=== PATIENT | male | born 1940 | race Caucasian/White ===

== ENCOUNTER 2016-11-10 19:50 | Inpatient (IN) | payer MEDICARE, BC ==
[~2016-11-10] VITALS: Ht 175.3 cm; Wt 82.3 kg
[2016-11-10] MEDS ORDERED: SODIUM CHLORIDE FLUSH 10ML SYR IVF ONE (21:00)
[2016-11-10] MEDS ORDERED: LIDOCAINE 2% 100MG/5ML SYRINGE IVPush ONE (21:00)
[2016-11-10] MEDS ORDERED: PLEASE ENTER ALLERGIES MC SCH ×2 (21:00)
[2016-11-10] MEDS ORDERED: TIOT18CA INH (21:09)
[2016-11-10] MEDS ORDERED: FLUT1DIS3 INH (21:09)
[2016-11-10] MEDS ORDERED: TAMS0.4C2 PO (21:09)
[2016-11-10] MEDS ORDERED: IRON1TAB60 PO (21:09)
[2016-11-10] MEDS ORDERED: FINA5TAB4 PO (21:09)
[2016-11-10] MEDS ORDERED: PANT40TA3 PO (21:16)
[2016-11-10] MEDS ORDERED: ALBU8.5H3 INH (21:16)
[2016-11-10] MEDS ORDERED: METO50TA82 PO (21:16)
[2016-11-10] MEDS ORDERED: ASPI81TA50 PO (21:16)
[2016-11-10] MEDS ORDERED: ATOR40TA PO (21:16)
[2016-11-10] MEDS ORDERED: MAGN400T36 PO (21:16)
[2016-11-10] MEDS ORDERED: AMIO400T4 PO (21:16)
[2016-11-10] MEDS ORDERED: FURO40TA6 PO (21:16)
[2016-11-10] MEDS ORDERED: TRAZODONE 50MG TABLET PO PRN (21:30)
[2016-11-10] MEDS ORDERED: ACETAMINOPHEN 325 MG TABLET PO PRN (21:30)
[2016-11-10] MEDS ORDERED: BISACODYL 10 MG SUPP PR PRN (21:30)
[2016-11-10] MEDS ORDERED: POLYETHYLENE GLYCOL 17 GM PACKET PO PRN (21:30)
[2016-11-10] MEDS ORDERED: LABETALOL 5MG/ML, 20ML IV PRN (21:30)
[2016-11-10] MEDS ORDERED: PANTOPROZOLE 40MG TABLET PO ONE (21:30)
[2016-11-10] MEDS ORDERED: ONDANSETRON ODT 4 MG PO PRN (21:30)
[2016-11-10] MEDS ORDERED: HEPARIN 5,000 UNITS/ML, 1ML ONE (22:08)
[2016-11-10] MEDS: HEPARIN 5,000 UNITS/ML, 1ML SQ SCH (22:15)
[2016-11-10 23:12] LABS: IS PT STATUS REG ER OR PRE ER? YES
[2016-11-11] MEDS ORDERED: ALBUTEROL SULFATE 2.5 MG/3 ML NPPB ONE (00:30)
[2016-11-11] MEDS ORDERED: FUROSEMIDE 40 MG/4 ML IV ONE ×2 (01:00→23:30)
[2016-11-11 01:10] LABS: ABG COLLECTION SITE LEFT BRACHIAL
[2016-11-11 01:23] LABS: BLOOD UREA NITROGEN 19 mg/dL (7-18)
[2016-11-11] MEDS: METOPROLOL TARTRATE 50 MG TABLET PO SCH ×3 (02:03→20:29)
[2016-11-11] MEDS: PHENYLEPHRINE 20 MG in SODIUM CHLORIDE 0.9% 248 ML IV PRN ×3 (02:03→14:58)
[2016-11-11] MEDS: ATORVASTATIN 40 MG TABLET PO SCH ×2 (02:58→20:31)
[2016-11-11] MEDS ORDERED: POTASSIUM CHLORIDE 20 MEQ TAB.ER.PRT PO ONE (03:00)
[2016-11-11] MEDS: IPRATROPIUM 0.5 MG/2.5 ML INHA NPPB SCH ×2 (03:00→03:42)
[2016-11-11 03:32] VITALS: BP 85/47
[2016-11-11 04:00] VITALS: BP 97/50
[2016-11-11 05:43] LABS: ABG COLLECTION SITE LEFT RADIAL; COLLATERAL CIRCULATION TESTING NORMAL
[2016-11-11 06:10] LABS: ASPARTATE AMINO TRANSFERASE 31 U/L (15-37); BLOOD UREA NITROGEN 19 mg/dL (7-18)
[2016-11-11 06:16] LABS: IS PT STATUS REG ER OR PRE ER? NO
[2016-11-11] MEDS: HEPARIN 5,000 UNITS/ML, 1ML SQ SCH ×3 (06:23→20:49)
[2016-11-11] MEDS: FINASTERIDE 5 MG TABLET PO SCH (09:00)
[2016-11-11] MEDS ORDERED: TAMSULOSIN 0.4 MG CAP.ER.24H PO SCH (09:00)
[2016-11-11] MEDS: FUROSEMIDE 40 MG TABLET PO SCH (09:44)
[2016-11-11] MEDS: AMIODARONE 200 MG TABLET PO SCH (09:44)
[2016-11-11] MEDS: ASPIRIN 81 MG TABLET EC PO SCH (09:44)
[2016-11-11] MEDS: MULTIVITAMINS WITH IRON TABLET PO SCH (09:44)
[2016-11-11] MEDS: POTASSIUM CHLORIDE 20 MEQ TAB.ER.PRT PO SCH ×2 (09:44→17:10)
[2016-11-11] MEDS: MAGNESIUM OXIDE 400 MG TABLET PO SCH (09:45)
[2016-11-11] MEDS ORDERED: ALBUTEROL/IPRATROPIUM 2.5MG/0.5MG, 3 ML ONE (10:17)
[2016-11-11] MEDS ORDERED: ALBUTEROL/IPRATROPIUM 2.5MG/0.5MG, 3 ML NPPB PRN (10:30)
[2016-11-11] MEDS: FLUTICASONE/VILANTEROL 100-25MCG/INH INH SCH (12:52)
[2016-11-11] MEDS: ALBUTEROL/IPRATROPIUM 2.5MG/0.5MG, 3 ML NPPB SCH ×2 (14:12→21:00)
[2016-11-11] MEDS: PHENYLEPHRINE 40 MG in SODIUM CHLORIDE 0.9% 246 ML IV PRN (19:41)
[2016-11-11] MEDS: TAMSULOSIN 0.4 MG CAP.ER.24H PO SCH (20:31)
[2016-11-12] MEDS: PHENYLEPHRINE 40 MG in SODIUM CHLORIDE 0.9% 246 ML IV PRN ×2 (02:16→08:40)
[2016-11-12] MEDS: ALBUTEROL/IPRATROPIUM 2.5MG/0.5MG, 3 ML NPPB SCH ×4 (03:00→20:09)
[2016-11-12 04:00] VITALS: BP 99/52
[2016-11-12] MEDS: HEPARIN 5,000 UNITS/ML, 1ML SQ SCH ×3 (04:58→20:57)
[2016-11-12 06:07] LABS: ASPARTATE AMINO TRANSFERASE 37 U/L (15-37); BLOOD UREA NITROGEN 17 mg/dL (7-18)
[2016-11-12 07:39] LABS: IS PT STATUS REG ER OR PRE ER? NO
[2016-11-12] MEDS: FLUTICASONE/VILANTEROL 100-25MCG/INH INH SCH (08:39)
[2016-11-12] MEDS: MAGNESIUM OXIDE 400 MG TABLET PO SCH (08:40)
[2016-11-12] MEDS: FUROSEMIDE 40 MG TABLET PO SCH (08:41)
[2016-11-12] MEDS: MULTIVITAMINS WITH IRON TABLET PO SCH (08:41)
[2016-11-12] MEDS: ASPIRIN 81 MG TABLET EC PO SCH (08:41)
[2016-11-12] MEDS: AMIODARONE 200 MG TABLET PO SCH (08:41)
[2016-11-12] MEDS: FINASTERIDE 5 MG TABLET PO SCH (08:42)
[2016-11-12] MEDS: POTASSIUM CHLORIDE 20 MEQ TAB.ER.PRT PO SCH ×2 (08:42→18:29)
[2016-11-12] MEDS ORDERED: LABETALOL 5MG/ML, 20ML IV PRN (20:11)
[2016-11-12] MEDS: ATORVASTATIN 40 MG TABLET PO SCH (20:55)
[2016-11-12] MEDS: TAMSULOSIN 0.4 MG CAP.ER.24H PO SCH (20:55)
[2016-11-13 04:00] VITALS: BP 97/48
[2016-11-13] MEDS: HEPARIN 5,000 UNITS/ML, 1ML SQ SCH ×3 (05:30→21:47)
[2016-11-13] MEDS: PHENYLEPHRINE 40 MG in SODIUM CHLORIDE 0.9% 246 ML IV PRN ×2 (05:40→18:53)
[2016-11-13 06:11] LABS: BLOOD UREA NITROGEN 17 mg/dL (7-18)
[2016-11-13] MEDS: ALBUTEROL/IPRATROPIUM 2.5MG/0.5MG, 3 ML NPPB SCH ×4 (07:30→21:10)
[2016-11-13] MEDS ORDERED: SODIUM CHLORIDE 0.9% 1,000 ML IV ONE (07:36)
[2016-11-13] MEDS ORDERED: FILTER 0.22 MICRON IV PRN (08:00)
[2016-11-13] MEDS ORDERED: AMIODARONE 150 MG in DEXTROSE 5% 100 ML IV ONE (08:00)
[2016-11-13] MEDS: FINASTERIDE 5 MG TABLET PO SCH (09:00)
[2016-11-13] MEDS: MULTIVITAMINS WITH IRON TABLET PO SCH (09:00)
[2016-11-13] MEDS: FLUTICASONE/VILANTEROL 100-25MCG/INH INH SCH (09:21)
[2016-11-13] MEDS: TAMSULOSIN 0.4 MG CAP.ER.24H PO SCH (09:23)
[2016-11-13] MEDS: MAGNESIUM OXIDE 400 MG TABLET PO SCH (09:23)
[2016-11-13] MEDS: POTASSIUM CHLORIDE 20 MEQ TAB.ER.PRT PO SCH ×2 (09:23→16:13)
[2016-11-13] MEDS: AMIODARONE 200 MG TABLET PO SCH (09:25)
[2016-11-13] MEDS: FUROSEMIDE 40 MG TABLET PO SCH (09:26)
[2016-11-13] MEDS: ASPIRIN 81 MG TABLET EC PO SCH (09:48)
[2016-11-13] MEDS ORDERED: FENTANYL PF 100 MCG/2ML ONE (11:42)
[2016-11-13] MEDS ORDERED: LIDOCAINE 2%, 20ML ONE (11:42)
[2016-11-13] MEDS ORDERED: MIDAZOLAM 1 MG/ML, 5ML ONE (11:42)
[2016-11-13] MEDS ORDERED: BIVALIRUDIN 250 MG ONE (11:46)
[2016-11-13] MEDS ORDERED: VERAPAMIL 2.5 MG/ML, 2ML ONE (11:46)
[2016-11-13] MEDS ORDERED: AMIODARONE 50 MG/ML, 3ML ONE (12:05)
[2016-11-13] MEDS: MEXILETINE 150 MG CAPSULE PO SCH ×2 (16:13→21:48)
[2016-11-13] MEDS: DOCUSATE 100 MG CAPSULE PO PRN (16:15)
[2016-11-13] MEDS: ATORVASTATIN 40 MG TABLET PO SCH (21:47)
[2016-11-14] MEDS ORDERED: NOREPINEPHRINE 4 MG in SODIUM CHLORIDE 0.9% 246 ML IV PRN (04:30)
[2016-11-14 04:42] VITALS: BP 88/45
[2016-11-14] MEDS: PHENYLEPHRINE 40 MG in SODIUM CHLORIDE 0.9% 246 ML IV PRN (05:31)
[2016-11-14] MEDS: HEPARIN 5,000 UNITS/ML, 1ML SQ SCH ×3 (05:32→21:05)
[2016-11-14] MEDS: MEXILETINE 150 MG CAPSULE PO SCH ×3 (05:32→21:05)
[2016-11-14] MEDS: ALBUTEROL/IPRATROPIUM 2.5MG/0.5MG, 3 ML NPPB SCH ×4 (07:45→20:53)
[2016-11-14] MEDS: AMIODARONE 200 MG TABLET PO SCH (09:20)
[2016-11-14] MEDS: FINASTERIDE 5 MG TABLET PO SCH (09:20)
[2016-11-14] MEDS: MULTIVITAMINS WITH IRON TABLET PO SCH (09:20)
[2016-11-14] MEDS: POTASSIUM CHLORIDE 20 MEQ TAB.ER.PRT PO SCH ×2 (09:20→17:57)
[2016-11-14] MEDS: TAMSULOSIN 0.4 MG CAP.ER.24H PO SCH (09:20)
[2016-11-14] MEDS: FLUTICASONE/VILANTEROL 100-25MCG/INH INH SCH (09:20)
[2016-11-14] MEDS: ASPIRIN 81 MG TABLET EC PO SCH (09:21)
[2016-11-14] MEDS: FUROSEMIDE 40 MG TABLET PO SCH (09:21)
[2016-11-14] MEDS: MAGNESIUM OXIDE 400 MG TABLET PO SCH (09:27)
[2016-11-14] MEDS ORDERED: PROPOFOL 10 MG/ML, 20ML ONE (12:33)
[2016-11-14] MEDS ORDERED: PHENYLEPHRINE 10 MG/ML ONE (12:33)
[2016-11-14] MEDS: ATORVASTATIN 40 MG TABLET PO SCH (21:05)
[2016-11-15 04:58] VITALS: BP 95/42
[2016-11-15] MEDS: MEXILETINE 150 MG CAPSULE PO SCH ×3 (06:02→20:37)
[2016-11-15] MEDS: HEPARIN 5,000 UNITS/ML, 1ML SQ SCH ×3 (06:02→20:37)
[2016-11-15] MEDS: ALBUTEROL/IPRATROPIUM 2.5MG/0.5MG, 3 ML NPPB SCH ×4 (07:20→20:17)
[2016-11-15] MEDS: MAGNESIUM OXIDE 400 MG TABLET PO SCH (08:18)
[2016-11-15] MEDS: MULTIVITAMINS WITH IRON TABLET PO SCH (08:18)
[2016-11-15] MEDS: POTASSIUM CHLORIDE 20 MEQ TAB.ER.PRT PO SCH (08:19)
[2016-11-15] MEDS: FLUTICASONE/VILANTEROL 100-25MCG/INH INH SCH (08:19)
[2016-11-15] MEDS: TAMSULOSIN 0.4 MG CAP.ER.24H PO SCH (08:19)
[2016-11-15] MEDS: ASPIRIN 81 MG TABLET EC PO SCH (08:19)
[2016-11-15] MEDS: AMIODARONE 200 MG TABLET PO SCH (08:19)
[2016-11-15] MEDS: FUROSEMIDE 40 MG TABLET PO SCH (08:19)
[2016-11-15 12:49] LABS: BLOOD UREA NITROGEN 19 mg/dL (7-18)
[2016-11-15] MEDS ORDERED: SODIUM CHLORIDE 0.9% 1,000 ML IV ONE (15:00)
[2016-11-15 15:12] VITALS: BP 104/60
[2016-11-15] MEDS: DOCUSATE 100 MG CAPSULE PO PRN (16:46)
[2016-11-15 18:52] VITALS: BP 99/61
[2016-11-15] MEDS: ATORVASTATIN 40 MG TABLET PO SCH (20:37)
[2016-11-16 02:00] VITALS: BP 96/55
[2016-11-16 03:57] LABS: BLOOD UREA NITROGEN 17 mg/dL (7-18)
[2016-11-16] MEDS: HEPARIN 5,000 UNITS/ML, 1ML SQ SCH ×3 (05:05→21:51)
[2016-11-16] MEDS: MEXILETINE 150 MG CAPSULE PO SCH ×3 (05:44→21:51)
[2016-11-16] MEDS: ALBUTEROL/IPRATROPIUM 2.5MG/0.5MG, 3 ML NPPB SCH ×4 (07:00→19:45)
[2016-11-16 07:15] VITALS: BP 103/63
[2016-11-16] MEDS ORDERED: PHENYLEPHRINE 10 MG/ML ONE (07:56)
[2016-11-16] MEDS ORDERED: PROPOFOL 10 MG/ML, 20ML ONE (07:56)
[2016-11-16] MEDS ORDERED: EPINEPHRINE 1 MG/ML, 1ML ONE (07:56)
[2016-11-16 09:29] VITALS: BP 105/72
[2016-11-16] MEDS: FLUTICASONE/VILANTEROL 100-25MCG/INH INH SCH (09:32)
[2016-11-16] MEDS: FUROSEMIDE 40 MG TABLET PO SCH (09:32)
[2016-11-16] MEDS: MAGNESIUM OXIDE 400 MG TABLET PO SCH (09:32)
[2016-11-16] MEDS: MULTIVITAMINS WITH IRON TABLET PO SCH (09:33)
[2016-11-16] MEDS: TAMSULOSIN 0.4 MG CAP.ER.24H PO SCH (09:33)
[2016-11-16] MEDS: ASPIRIN 81 MG TABLET EC PO SCH (09:33)
[2016-11-16] MEDS: AMIODARONE 200 MG TABLET PO SCH (09:33)
[2016-11-16 19:46] VITALS: BP 103/63
[2016-11-16] MEDS: ATORVASTATIN 40 MG TABLET PO SCH (21:51)
[2016-11-17 01:51] VITALS: BP 101/57
[2016-11-17] MEDS: HEPARIN 5,000 UNITS/ML, 1ML SQ SCH ×3 (05:58→21:32)
[2016-11-17] MEDS: MEXILETINE 150 MG CAPSULE PO SCH ×3 (05:58→21:32)
[2016-11-17] MEDS: ALBUTEROL/IPRATROPIUM 2.5MG/0.5MG, 3 ML NPPB SCH ×4 (07:00→19:32)
[2016-11-17 07:42] VITALS: BP 110/62
[2016-11-17] MEDS: FLUTICASONE/VILANTEROL 100-25MCG/INH INH SCH (08:40)
[2016-11-17] MEDS: ASPIRIN 81 MG TABLET EC PO SCH (08:41)
[2016-11-17] MEDS: MAGNESIUM OXIDE 400 MG TABLET PO SCH (08:41)
[2016-11-17] MEDS: AMIODARONE 200 MG TABLET PO SCH (08:41)
[2016-11-17] MEDS: FUROSEMIDE 40 MG TABLET PO SCH (08:41)
[2016-11-17] MEDS: TAMSULOSIN 0.4 MG CAP.ER.24H PO SCH (08:41)
[2016-11-17] MEDS: MULTIVITAMINS WITH IRON TABLET PO SCH (08:41)
[2016-11-17 14:14] VITALS: BP 121/68
[2016-11-17 20:03] VITALS: BP 108/61
[2016-11-17] MEDS: ATORVASTATIN 40 MG TABLET PO SCH (21:32)
[2016-11-18 01:10] VITALS: BP 100/61
[2016-11-18] MEDS: HEPARIN 5,000 UNITS/ML, 1ML SQ SCH ×2 (06:28→10:15)
[2016-11-18] MEDS: MEXILETINE 150 MG CAPSULE PO SCH (06:28)
[2016-11-18] MEDS: ALBUTEROL/IPRATROPIUM 2.5MG/0.5MG, 3 ML NPPB SCH ×2 (07:05→11:25)
[2016-11-18] MEDS ORDERED: ASPI-621 PO (07:07)
[2016-11-18] MEDS ORDERED: MEXI150C PO (07:07)
[2016-11-18] MEDS ORDERED: TAMS-11 PO (07:07)
[2016-11-18] MEDS ORDERED: FURO40TA6 PO (07:07)
[2016-11-18] MEDS ORDERED: ATOR40TA78 PO (07:07)
[2016-11-18] MEDS ORDERED: MULT1TAB81 PO (07:07)
[2016-11-18] MEDS ORDERED: TRAZ50TA18 PO (07:07)
[2016-11-18] MEDS ORDERED: MAGN400T26 PO (07:07)
[2016-11-18] MEDS ORDERED: FLUT1AER INH (07:07)
[2016-11-18] MEDS ORDERED: AMIO200T42 PO (07:07)
[2016-11-18] MEDS: AMIODARONE 200 MG TABLET PO SCH (07:26)
[2016-11-18] MEDS: ASPIRIN 81 MG TABLET EC PO SCH (07:26)
[2016-11-18] MEDS: MULTIVITAMINS WITH IRON TABLET PO SCH (07:26)
[2016-11-18] MEDS: MAGNESIUM OXIDE 400 MG TABLET PO SCH (07:27)
[2016-11-18] MEDS: TAMSULOSIN 0.4 MG CAP.ER.24H PO SCH (07:27)
[2016-11-18] MEDS: FUROSEMIDE 40 MG TABLET PO SCH (07:27)
[2016-11-18] MEDS: FLUTICASONE/VILANTEROL 100-25MCG/INH INH SCH (07:27)
[2016-11-18 07:40] VITALS: BP 105/62
[2016-11-18 12:58] VITALS: BP 125/65
== END 2016-11-18 13:22 | DRG 286 ==
LOC: ED 22:13 → EDIP 22:56 → CSU 23:58 → 5SO 11-15 15:03
PROVIDERS: ADMIT Internal Medicine; ATTEND Internal Medicine
PROC: 02HV33Z Insertion of Infusion Device into Superior Vena Cava, Percutaneous Approach (ICD-10-PCS; 2016-11-11)
PROC: B548ZZA Ultrasonography of Superior Vena Cava, Guidance (ICD-10-PCS; 2016-11-11)
PROC: B2111ZZ Fluoroscopy of Multiple Coronary Arteries using Low Osmolar Contrast (ICD-10-PCS; 2016-11-13)
PROC: B2151ZZ Fluoroscopy of Left Heart using Low Osmolar Contrast (ICD-10-PCS; 2016-11-13)
PROC: B24BZZ4 Ultrasonography of Heart with Aorta, Transesophageal (ICD-10-PCS; 2016-11-13)
PROC: 4A023N7 Measurement of Cardiac Sampling and Pressure, Left Heart, Percutaneous Approach (ICD-10-PCS; principal; 2016-11-13 12:30)
PROC: 4B02XTZ Measurement of Cardiac Defibrillator, External Approach (ICD-10-PCS; 2016-11-16)
DX: I47.2 Ventricular tachycardia (principal); J96.21 Acute and chronic respiratory failure with hypoxia; I50.23 Acute on chronic systolic (congestive) heart failure; N17.9 Acute kidney failure, unspecified; D64.9 Anemia, unspecified; I25.10 Atherosclerotic heart disease of native coronary artery without angina pectoris; E78.00 Pure hypercholesterolemia, unspecified; E78.5 Hyperlipidemia, unspecified; E87.6 Hypokalemia; I95.9 Hypotension, unspecified; E87.70 Fluid overload, unspecified; I25.5 Ischemic cardiomyopathy; I34.0 Nonrheumatic mitral (valve) insufficiency; I45.10 Unspecified right bundle-branch block; J44.9 Chronic obstructive pulmonary disease, unspecified; N40.0 Benign prostatic hyperplasia without lower urinary tract symptoms; Z51.5 Encounter for palliative care; I25.2 Old myocardial infarction; Z79.82 Long term (current) use of aspirin; Z95.5 Presence of coronary angioplasty implant and graft; Z79.899 Other long term (current) drug therapy; Z87.891 Personal history of nicotine dependence; Z95.810 Presence of automatic (implantable) cardiac defibrillator; Z99.81 Dependence on supplemental oxygen; Z82.49 Family history of ischemic heart disease and other diseases of the circulatory system
CPT/HCPCS: 36415; 36569; 36600; 71010; 76937; 77001; 80048; 80053; 82803; 83735; 83880; 84439; 84443; 84484; 85025; 85610; 87081; 93005; 93312; 93321; 93325; 93458; 94640; 96372; 96374; C1760; C1894; C8929; J0171; J0583; J1644; J1940; J2250; J2704; J3010; J3490; J7613; J7620; J7644; C1751; J0282; J2370; J7030; J7050; Q9967

== ENCOUNTER 2020-04-23 07:53 | Inpatient (IN) | payer MEDICARE, BC ==
[~2020-04-23] VITALS: Ht 175.3 cm; Wt 90.0 kg
[~2020-04-23 07:53] MED LIST: ALBU8.5H8 INH; AMIO200T42 PO; AMIO400T5 PO; ASPI81TA45 PO; ASPI81TA50 PO; ATOR40TA PO; ATOR40TA78 PO; FINA5TAB4 PO; FLUT1AER INH; FLUT1DIS3 INH; FURO40TA6 PO; IRON1TAB60 PO; MAGN400T26 PO; MAGN400T36 PO; METO50TA82 PO; MEXI150C PO; MULT1TAB81 PO; PANT40TA3 PO; TAMS-11 PO; TAMS0.4C2 PO; TIOT18CA INH; TRAZ50TA66 PO
[2020-04-23] MEDS ORDERED: FENTANYL PF 100 MCG/2ML ONE ×2 (08:06→10:05)
[2020-04-23] MEDS ORDERED: LIDOCAINE-MPF 2% ,5ML ONE (08:07)
[2020-04-23] MEDS ORDERED: OXYcodone 5 MG/5 ML ORAL.SOL UDC PO PRN (08:30)
[2020-04-23] MEDS ORDERED: PLEASE ENTER HEIGHT AND WEIGHT MC SCH ×3 (08:30→11:30)
[2020-04-23] MEDS ORDERED: MEPERIDINE/PF 25MG/0.5ML IVPush PRN (08:30)
[2020-04-23] MEDS ORDERED: PROMETHAZINE 25 MG/ML, 1ML IVPush PRN (08:30)
[2020-04-23] MEDS ORDERED: ACETAMINOPHEN 325 MG TABLET PO PRN (08:30)
[2020-04-23] MEDS ORDERED: EPHEDRINE 50 MG/ML, 1ML IVPush PRN (08:30)
[2020-04-23] MEDS ORDERED: ONDANSETRON 2MG/ML, 2ML IVPush PRN (08:30)
[2020-04-23] MEDS ORDERED: FENTANYL PF 100 MCG/2ML IV PRN (08:30)
[2020-04-23] MEDS ORDERED: HYDROmorphone 1 MG/ML, 1ML INJ IVPush PRN (08:30)
[2020-04-23] MEDS ORDERED: LABETALOL 5MG/ML, 20ML IV PRN (08:30)
[2020-04-23] MEDS ORDERED: hydrALAzine 20 MG/ML, 1ML IV PRN (08:30)
[2020-04-23] MEDS ORDERED: SODIUM CHLORIDE 0.9% 1,000 ML IV SCH ×3 (08:35→09:00)
[2020-04-23] MEDS ORDERED: FLUT1DIS3 INH (08:59)
[2020-04-23] MEDS ORDERED: MEXI200C PO (08:59)
[2020-04-23] MEDS ORDERED: MULT-751 PO (09:00)
[2020-04-23] MEDS ORDERED: FERR324T5 PO (09:02)
[2020-04-23] MEDS ORDERED: ALBU90AE2 INH (09:02)
[2020-04-23] MEDS ORDERED: LUTE20CA2 PO (09:03)
[2020-04-23 10:04] LABS: BASOPHILS # (AUTO) 0.01 x10^3/uL (0-0.1); BASOPHILS % (AUTO) 0 % (0-1); EOSINOPHILS # (AUTO) 0.01 x10^3/uL (0-0.4); EOSINOPHILS % (AUTO) 0 % (1-7); LYMPHOCYTES # (AUTO) 0.71 x10^3/uL (1-3.4); LYMPHOCYTES % (AUTO) 10 % (22-44); MD NO; MEAN CORPUSCULAR HEMOGLOBIN 28.1 pg (27.5-34.5); MEAN CORPUSCULAR HGB CONC 31.9 g/dL (33.2-36.2); MEAN PLATELET VOLUME 7.6 fL (7.4-10.4); MONOCYTES # (AUTO) 0.58 x10^3/uL (0.2-0.8); MONOCYTES % (AUTO) 8 % (2-9); NEUTROPHILS # (AUTO) 5.92 x10^3/uL (1.8-6.8); NEUTROPHILS % (AUTO) 82 % (42-75); PLATELET COUNT 233 x10^3/uL (130-400); RED BLOOD COUNT 4.25 x10^6/uL (4.38-5.82); RED CELL DISTRIBUTION WIDTH 18.2 % (9.4-14.8)
[2020-04-23] MEDS ORDERED: CEFAZOLIN 1,000 MG ONE (10:05)
[2020-04-23] MEDS ORDERED: LIDOCAINE 2%, 20ML ONE ×2 (10:05→11:12)
[2020-04-23] MEDS ORDERED: MIDAZOLAM 1 MG/ML, 5ML ONE (10:05)
[2020-04-23 10:12] LABS: INTERNATIONAL NORMALIZED RATIO 1.28 (0.93-1.1); PROTHROMBIN TIME 13.2 Seconds (9.6-11.5)
[2020-04-23 10:13] LABS: ANION GAP 9 mmol/L (5-15); CALCIUM 8.7 mg/dL (8.5-10.1); CHLORIDE 108 mmol/L (98-107)
[2020-04-23] MEDS ORDERED: ROCURONIUM 10 MG/ML,10ML ONE (10:52)
[2020-04-23] MEDS ORDERED: ONDANSETRON 2MG/ML, 2ML ONE (10:55)
[2020-04-23] MEDS ORDERED: PROPOFOL 10 MG/ML, 20ML ONE (10:55)
[2020-04-23] MEDS ORDERED: SUCCINYLCHOLINE 20 MG/ML, 10ML ONE (10:55)
[2020-04-23] MEDS ORDERED: DEXAMETHASONE 4 MG/ML, 1ML ONE (10:55)
[2020-04-23] MEDS ORDERED: NEOSTIGMINE 1 MG/ML, 10ML ONE (12:21)
[2020-04-23] MEDS ORDERED: GLYCOPYRROLATE 0.2MG/1ML, 5ML ONE (12:21)
[2020-04-23] MEDS ORDERED: EPINEPHRINE 1 MG/ML, 1ML ONE (13:16)
[2020-04-23] MEDS ORDERED: ALBUTEROL HFA 90 MCG/SPRAY ONE (13:53)
[2020-04-23] MEDS ORDERED: ALBUTEROL SULFATE 2.5 MG/3 ML ONE (14:18)
[2020-04-23] MEDS ORDERED: MEXILETINE HCL 200 MG CAP PO SCH (16:00)
[2020-04-23] MEDS ORDERED: MELATONIN 5 MG TABLET PO PRN (16:00)
[2020-04-23] MEDS: ALBUTEROL SULFATE 200 PUFFS/8.5 GR INH INH SCH ×3 (16:00→21:15)
[2020-04-23] MEDS ORDERED: FUROSEMIDE 20 MG/2 ML ONE (16:28)
[2020-04-23] MEDS: FUROSEMIDE 40 MG/4 ML IV SCH ×2 (16:32→17:38)
[2020-04-23 16:51] LABS: FREE T4 (FREE THYROXINE) 1.61 ng/dL (0.76-1.46)
[2020-04-23] MEDS ORDERED: POTASSIUM CHLORIDE 20 MEQ TAB.ER.PRT PO SCH (17:00)
[2020-04-23] MEDS ORDERED: PLEASE ENTER HEIGHT MC SCH (17:36)
[2020-04-23] MEDS ORDERED: DOBUTAMINE/D5W PMX 250 ML IV PRN (18:00)
[2020-04-23] MEDS: RIVAROXABAN 15 MG TABLET PO SCH (18:44)
[2020-04-23 21:00] VITALS: BP 109/43
[2020-04-23] MEDS: MEXILETINE 150 MG CAPSULE PO SCH (21:14)
[2020-04-23] MEDS: SODIUM CHLORIDE FLUSH 10ML SYR IVF SCH (21:15)
[2020-04-23] MEDS: ATORVASTATIN 40 MG TABLET PO SCH (21:15)
[2020-04-24] VITALS (9 sets, daily range): BP systolic 79–105; BP diastolic 35–66
[2020-04-24] MEDS ORDERED: PROMETHAZINE 25 MG/ML, 1ML ONE (00:24)
[2020-04-24] MEDS ORDERED: PROMETHAZINE 25 MG/ML, 1ML IM PRN (00:30)
[2020-04-24] MEDS: ALBUTEROL SULFATE 200 PUFFS/8.5 GR INH INH SCH ×6 (04:00→20:00)
[2020-04-24 05:15] LABS: CHLORIDE 108 mmol/L (98-107)
[2020-04-24 05:32] LABS: ALANINE AMINOTRANSFERASE 18 U/L (12-78); ALBUMIN 2.8 g/dL (3.4-5.0); ALKALINE PHOSPHATASE 61 U/L (45-117); ANION GAP 10 mmol/L (5-15); BILIRUBIN,TOTAL 0.7 mg/dL (0.2-1.0); CALCIUM 8.2 mg/dL (8.5-10.1); CREATININE 2.17 mg/dL (0.7-1.3); TOTAL PROTEIN 6.1 g/dL (6.4-8.2)
[2020-04-24] MEDS: SODIUM CHLORIDE FLUSH 10ML SYR IVF SCH ×2 (08:06→20:26)
[2020-04-24] MEDS: FUROSEMIDE 40 MG/4 ML IV SCH ×2 (08:06→18:13)
[2020-04-24] MEDS: AMIODARONE 200 MG TABLET PO SCH (08:29)
[2020-04-24] MEDS: CARVEDILOL 3.125 MG TABLET PO SCH ×2 (08:29→18:13)
[2020-04-24] MEDS: FERROUS SULFATE 325 MG TABLET PO SCH (08:29)
[2020-04-24] MEDS: MULTIVITAMINS/MINERALS TABLET PO SCH (08:29)
[2020-04-24] MEDS: OMEPRAZOLE 20 MG CAPSULE.DR PO SCH (08:29)
[2020-04-24] MEDS: TAMSULOSIN 0.4 MG CAP.ER.24H PO SCH (08:29)
[2020-04-24] MEDS: MAGNESIUM OXIDE 400 MG TABLET PO SCH (08:30)
[2020-04-24] MEDS: MEXILETINE 150 MG CAPSULE PO SCH ×3 (08:30→20:26)
[2020-04-24] MEDS: FLUTICASONE/VILANTEROL 200-25MCG/INH INH SCH (08:32)
[2020-04-24] MEDS ORDERED: TEMPLATE NON-FORMULARY MED. (Lutein** 20 MG) PO SCH (09:00)
[2020-04-24] MEDS ORDERED: ASPIRIN 81 MG TABLET EC PO SCH (09:00)
[2020-04-24] MEDS: RIVAROXABAN 15 MG TABLET PO SCH (18:22)
[2020-04-24] MEDS: ATORVASTATIN 40 MG TABLET PO SCH (20:26)
[2020-04-25] VITALS (13 sets, daily range): BP systolic 73–100; BP diastolic 41–61
[2020-04-25] MEDS ORDERED: SODIUM CHLORIDE 0.9% 500 ML IV SCH (02:00)
[2020-04-25] MEDS: ALBUTEROL SULFATE 200 PUFFS/8.5 GR INH INH SCH ×6 (04:00→20:00)
[2020-04-25] MEDS: OMEPRAZOLE 20 MG CAPSULE.DR PO SCH (06:01)
[2020-04-25 06:12] LABS: ANION GAP 8 mmol/L (5-15); CALCIUM 7.8 mg/dL (8.5-10.1); CHLORIDE 108 mmol/L (98-107); CREATININE 1.99 mg/dL (0.7-1.3)
[2020-04-25 06:20] LABS: MEAN CORPUSCULAR HEMOGLOBIN 28.2 pg (27.5-34.5); MEAN CORPUSCULAR HGB CONC 32.3 g/dL (33.2-36.2); MEAN PLATELET VOLUME 7.9 fL (7.4-10.4); PLATELET COUNT 184 x10^3/uL (130-400); RED BLOOD COUNT 2.82 x10^6/uL (4.38-5.82); RED CELL DISTRIBUTION WIDTH 17.8 % (9.4-14.8)
[2020-04-25 06:56] LABS: BASOPHILS # (AUTO) 0.03 x10^3/uL (0-0.1); BASOPHILS % (AUTO) 0 % (0-1); EOSINOPHILS % (AUTO) 0 % (1-7); LYMPHOCYTES # (AUTO) 0.64 x10^3/uL (1-3.4); LYMPHOCYTES % (AUTO) 7 % (22-44); MD SCAN; MONOCYTES # (AUTO) 0.71 x10^3/uL (0.2-0.8); MONOCYTES % (AUTO) 8 % (2-9); NEUTROPHILS # (AUTO) 7.81 x10^3/uL (1.8-6.8); NEUTROPHILS % (AUTO) 85 % (42-75)
[2020-04-25 08:01] LABS: RED BLOOD COUNT 2.83 x10^6/uL (4.38-5.82)
[2020-04-25 08:10] LABS: ABSOLUTE RETICS # 0.079 x10^6/uL (0.5-1.5); RETICULOCYTE COUNT % 2.72 % (0.5-1.5)
[2020-04-25] MEDS: FUROSEMIDE 40 MG/4 ML IV SCH ×2 (08:26→16:54)
[2020-04-25] MEDS: AMIODARONE 200 MG TABLET PO SCH (08:26)
[2020-04-25] MEDS: CARVEDILOL 3.125 MG TABLET PO SCH ×2 (08:26→17:25)
[2020-04-25] MEDS: FERROUS SULFATE 325 MG TABLET PO SCH (08:27)
[2020-04-25] MEDS: MAGNESIUM OXIDE 400 MG TABLET PO SCH (08:27)
[2020-04-25] MEDS: MEXILETINE 150 MG CAPSULE PO SCH ×3 (08:27→22:36)
[2020-04-25] MEDS: MULTIVITAMINS/MINERALS TABLET PO SCH (08:27)
[2020-04-25] MEDS: TAMSULOSIN 0.4 MG CAP.ER.24H PO SCH (08:28)
[2020-04-25] MEDS: SODIUM CHLORIDE FLUSH 10ML SYR IVF SCH ×2 (08:28→22:36)
[2020-04-25] MEDS: FLUTICASONE/VILANTEROL 200-25MCG/INH INH SCH (08:29)
[2020-04-25] MEDS ORDERED: FUROSEMIDE 40 MG TABLET PO ONE (17:00)
[2020-04-25] MEDS: ATORVASTATIN 40 MG TABLET PO SCH (22:36)
[2020-04-25] MEDS ORDERED: SODIUM CHLORIDE 0.9%, 500ML IVBOLUS ONE (23:00)
[2020-04-26 03:21] VITALS: BP 81/51
[2020-04-26] MEDS: ALBUTEROL SULFATE 200 PUFFS/8.5 GR INH INH SCH ×6 (04:00→20:30)
[2020-04-26] MEDS: OMEPRAZOLE 20 MG CAPSULE.DR PO SCH (05:13)
[2020-04-26] MEDS: CARVEDILOL 3.125 MG TABLET PO SCH ×2 (05:13→17:32)
[2020-04-26 05:30] LABS: BASOPHILS # (AUTO) 0.03 x10^3/uL (0-0.1); BASOPHILS % (AUTO) 0 % (0-1); EOSINOPHILS # (AUTO) 0.01 x10^3/uL (0-0.4); EOSINOPHILS % (AUTO) 0 % (1-7); LYMPHOCYTES # (AUTO) 0.59 x10^3/uL (1-3.4); LYMPHOCYTES % (AUTO) 8 % (22-44); MD NO; MEAN CORPUSCULAR HEMOGLOBIN 27.9 pg (27.5-34.5); MEAN PLATELET VOLUME 7.8 fL (7.4-10.4); MONOCYTES # (AUTO) 0.81 x10^3/uL (0.2-0.8); MONOCYTES % (AUTO) 10 % (2-9); NEUTROPHILS # (AUTO) 6.36 x10^3/uL (1.8-6.8); NEUTROPHILS % (AUTO) 82 % (42-75); PLATELET COUNT 194 x10^3/uL (130-400); RED BLOOD COUNT 2.89 x10^6/uL (4.38-5.82); RED CELL DISTRIBUTION WIDTH 18.1 % (9.4-14.8)
[2020-04-26 05:59] LABS: CHLORIDE 108 mmol/L (98-107)
[2020-04-26 06:01] LABS: ANION GAP 6 mmol/L (5-15); CALCIUM 7.9 mg/dL (8.5-10.1)
[2020-04-26 07:35] VITALS: BP 89/55
[2020-04-26 07:56] VITALS: BP 88/55
[2020-04-26] MEDS: MAGNESIUM OXIDE 400 MG TABLET PO SCH (08:51)
[2020-04-26] MEDS: MEXILETINE 150 MG CAPSULE PO SCH ×3 (08:51→21:04)
[2020-04-26] MEDS: AMIODARONE 200 MG TABLET PO SCH (08:51)
[2020-04-26] MEDS: FERROUS SULFATE 325 MG TABLET PO SCH (08:51)
[2020-04-26] MEDS: MULTIVITAMINS/MINERALS TABLET PO SCH (08:51)
[2020-04-26] MEDS: TAMSULOSIN 0.4 MG CAP.ER.24H PO SCH (08:52)
[2020-04-26] MEDS: SODIUM CHLORIDE FLUSH 10ML SYR IVF SCH ×2 (08:52→21:04)
[2020-04-26] MEDS: FLUTICASONE/VILANTEROL 200-25MCG/INH INH SCH (09:00)
[2020-04-26 12:42] VITALS: BP 95/59
[2020-04-26 18:09] VITALS: BP 89/56
[2020-04-26] MEDS: ATORVASTATIN 40 MG TABLET PO SCH (21:03)
[2020-04-26 23:36] VITALS: BP 82/50
[2020-04-27 01:21] VITALS: BP 89/57
[2020-04-27] MEDS: ALBUTEROL SULFATE 200 PUFFS/8.5 GR INH INH SCH ×6 (02:00→19:52)
[2020-04-27] MEDS ORDERED: NITROGLYCERIN 0.4 MG/SPRAY SL PRN (02:30)
[2020-04-27] MEDS ORDERED: FUROSEMIDE 20 MG/2 ML IV ONE (04:30)
[2020-04-27] MEDS: OMEPRAZOLE 20 MG CAPSULE.DR PO SCH (05:29)
[2020-04-27] MEDS: CARVEDILOL 3.125 MG TABLET PO SCH (05:29)
[2020-04-27] MEDS: FLUTICASONE/VILANTEROL 200-25MCG/INH INH SCH ×2 (07:15→11:15)
[2020-04-27 07:42] VITALS: BP 94/57
[2020-04-27 07:50] LABS: ALANINE AMINOTRANSFERASE 23 U/L (12-78); ALBUMIN 2.7 g/dL (3.4-5.0); ANION GAP 5 mmol/L (5-15); CALCIUM 8.2 mg/dL (8.5-10.1); CHLORIDE 107 mmol/L (98-107); CREATININE 1.42 mg/dL (0.7-1.3)
[2020-04-27 07:52] LABS: ALKALINE PHOSPHATASE 53 U/L (45-117); BILIRUBIN,TOTAL 0.5 mg/dL (0.2-1.0); TOTAL PROTEIN 6.3 g/dL (6.4-8.2)
[2020-04-27] MEDS: AMIODARONE 200 MG TABLET PO SCH (08:24)
[2020-04-27] MEDS: MEXILETINE 150 MG CAPSULE PO SCH ×3 (08:24→20:30)
[2020-04-27] MEDS: FERROUS SULFATE 325 MG TABLET PO SCH (08:24)
[2020-04-27] MEDS: MAGNESIUM OXIDE 400 MG TABLET PO SCH (08:24)
[2020-04-27] MEDS: MULTIVITAMINS/MINERALS TABLET PO SCH (08:24)
[2020-04-27] MEDS: TAMSULOSIN 0.4 MG CAP.ER.24H PO SCH (08:24)
[2020-04-27] MEDS: SODIUM CHLORIDE FLUSH 10ML SYR IVF SCH ×2 (08:25→20:30)
[2020-04-27] MEDS: DOCUSATE 100 MG CAPSULE PO PRN (09:23)
[2020-04-27 12:50] VITALS: BP 91/59
[2020-04-27] MEDS: POLYETHYLENE GLYCOL 17 GM PACKET PO SCH (14:37)
[2020-04-27] MEDS: FUROSEMIDE 20 MG/2 ML IV SCH (16:49)
[2020-04-27] MEDS: ATORVASTATIN 40 MG TABLET PO SCH (20:30)
[2020-04-27 20:32] VITALS: BP_SYST 86; BP_DIAS 51; BP_DIAS 81
[2020-04-27] MEDS: LACTULOSE 20 GM/30 ML UDC PO SCH ×2 (20:32→20:43)
[2020-04-27] MEDS ORDERED: LACTULOSE 10 GM/15 ML UDC PO SCH (21:00)
[2020-04-28 03:15] VITALS: BP 90/60
[2020-04-28 04:47] LABS: BASOPHILS # (AUTO) 0.01 x10^3/uL (0-0.1); BASOPHILS % (AUTO) 0 % (0-1); EOSINOPHILS # (AUTO) 0.01 x10^3/uL (0-0.4); EOSINOPHILS % (AUTO) 0 % (1-7); LYMPHOCYTES # (AUTO) 0.71 x10^3/uL (1-3.4); LYMPHOCYTES % (AUTO) 8 % (22-44); MD NO; MEAN CORPUSCULAR HGB CONC 32.7 g/dL (33.2-36.2); MEAN PLATELET VOLUME 8.1 fL (7.4-10.4); MONOCYTES # (AUTO) 0.81 x10^3/uL (0.2-0.8); MONOCYTES % (AUTO) 9 % (2-9); NEUTROPHILS # (AUTO) 7.41 x10^3/uL (1.8-6.8); NEUTROPHILS % (AUTO) 83 % (42-75); PLATELET COUNT 229 x10^3/uL (130-400); RED BLOOD COUNT 2.82 x10^6/uL (4.38-5.82); RED CELL DISTRIBUTION WIDTH 18.4 % (9.4-14.8)
[2020-04-28 04:57] LABS: ANION GAP 7 mmol/L (5-15); CALCIUM 8.2 mg/dL (8.5-10.1); CHLORIDE 105 mmol/L (98-107)
[2020-04-28 04:59] LABS: CREATININE 1.54 mg/dL (0.7-1.3)
[2020-04-28] MEDS: ALBUTEROL SULFATE 200 PUFFS/8.5 GR INH INH SCH ×4 (06:00→19:18)
[2020-04-28] MEDS: FUROSEMIDE 20 MG/2 ML IV SCH ×2 (06:35→16:54)
[2020-04-28] MEDS: OMEPRAZOLE 20 MG CAPSULE.DR PO SCH (06:35)
[2020-04-28] MEDS: FLUTICASONE/VILANTEROL 200-25MCG/INH INH SCH (06:56)
[2020-04-28 06:58] VITALS: BP 95/62
[2020-04-28] MEDS: LACTULOSE 20 GM/30 ML UDC PO SCH ×3 (08:22→21:03)
[2020-04-28] MEDS: POLYETHYLENE GLYCOL 17 GM PACKET PO SCH (08:22)
[2020-04-28] MEDS: AMIODARONE 200 MG TABLET PO SCH (08:22)
[2020-04-28] MEDS: TAMSULOSIN 0.4 MG CAP.ER.24H PO SCH (08:23)
[2020-04-28] MEDS: FERROUS SULFATE 325 MG TABLET PO SCH (08:23)
[2020-04-28] MEDS: MEXILETINE 150 MG CAPSULE PO SCH ×3 (08:23→21:03)
[2020-04-28] MEDS: MULTIVITAMINS/MINERALS TABLET PO SCH (08:23)
[2020-04-28] MEDS: MAGNESIUM OXIDE 400 MG TABLET PO SCH (08:23)
[2020-04-28] MEDS: SODIUM CHLORIDE FLUSH 10ML SYR IVF SCH ×2 (08:23→21:03)
[2020-04-28 13:18] VITALS: BP 89/54
[2020-04-28 19:04] VITALS: BP 93/60
[2020-04-28] MEDS: ATORVASTATIN 40 MG TABLET PO SCH (21:03)
[2020-04-29 00:42] VITALS: BP 102/62
[2020-04-29 05:09] LABS: BASOPHILS # (AUTO) 0.03 x10^3/uL (0-0.1); BASOPHILS % (AUTO) 0 % (0-1); EOSINOPHILS # (AUTO) 0.01 x10^3/uL (0-0.4); EOSINOPHILS % (AUTO) 0 % (1-7); LYMPHOCYTES # (AUTO) 0.98 x10^3/uL (1-3.4); LYMPHOCYTES % (AUTO) 13 % (22-44); MD NO; MEAN CORPUSCULAR HEMOGLOBIN 28.3 pg (27.5-34.5); MEAN CORPUSCULAR HGB CONC 31.9 g/dL (33.2-36.2); MONOCYTES # (AUTO) 0.77 x10^3/uL (0.2-0.8); MONOCYTES % (AUTO) 10 % (2-9); NEUTROPHILS # (AUTO) 5.57 x10^3/uL (1.8-6.8); NEUTROPHILS % (AUTO) 76 % (42-75); PLATELET COUNT 225 x10^3/uL (130-400); RED BLOOD COUNT 2.65 x10^6/uL (4.38-5.82); RED CELL DISTRIBUTION WIDTH 18.7 % (9.4-14.8)
[2020-04-29] MEDS: OMEPRAZOLE 20 MG CAPSULE.DR PO SCH (05:11)
[2020-04-29 05:21] LABS: ALBUMIN 2.4 g/dL (3.4-5.0); ANION GAP 6 mmol/L (5-15); CHLORIDE 105 mmol/L (98-107)
[2020-04-29 05:26] LABS: ALANINE AMINOTRANSFERASE 18 U/L (12-78); ALKALINE PHOSPHATASE 51 U/L (45-117); BILIRUBIN,TOTAL 0.8 mg/dL (0.2-1.0); CREATININE 1.52 mg/dL (0.7-1.3); TOTAL PROTEIN 5.9 g/dL (6.4-8.2)
[2020-04-29] MEDS: ALBUTEROL SULFATE 200 PUFFS/8.5 GR INH INH SCH ×4 (06:00→18:38)
[2020-04-29] MEDS: FLUTICASONE/VILANTEROL 200-25MCG/INH INH SCH (07:11)
[2020-04-29 07:20] VITALS: BP 92/56
[2020-04-29] MEDS: FUROSEMIDE 20 MG/2 ML IV SCH ×2 (09:06→18:34)
[2020-04-29] MEDS: FERROUS SULFATE 325 MG TABLET PO SCH (09:08)
[2020-04-29] MEDS: LACTULOSE 20 GM/30 ML UDC PO SCH ×2 (09:08→20:25)
[2020-04-29] MEDS: MAGNESIUM OXIDE 400 MG TABLET PO SCH (09:08)
[2020-04-29] MEDS: MULTIVITAMINS/MINERALS TABLET PO SCH (09:08)
[2020-04-29] MEDS: TAMSULOSIN 0.4 MG CAP.ER.24H PO SCH (09:08)
[2020-04-29] MEDS: AMIODARONE 200 MG TABLET PO SCH (09:08)
[2020-04-29] MEDS: MEXILETINE 150 MG CAPSULE PO SCH ×3 (09:08→20:23)
[2020-04-29] MEDS: SODIUM CHLORIDE FLUSH 10ML SYR IVF SCH ×2 (09:09→20:24)
[2020-04-29] MEDS: POLYETHYLENE GLYCOL 17 GM PACKET PO SCH ×2 (09:13→09:14)
[2020-04-29 13:39] VITALS: BP 102/57
[2020-04-29] MEDS ORDERED: FUROSEMIDE 40 MG/4 ML IV ONE (14:00)
[2020-04-29] MEDS ORDERED: LIDOCAINE 1%, 10ML ONE (15:01)
[2020-04-29 19:35] VITALS: BP 102/60
[2020-04-29] MEDS: ATORVASTATIN 40 MG TABLET PO SCH (20:23)
[2020-04-29] MEDS: DOCUSATE 100 MG CAPSULE PO PRN (20:29)
[2020-04-30 00:59] VITALS: BP 90/57
[2020-04-30] MEDS: OMEPRAZOLE 20 MG CAPSULE.DR PO SCH (05:35)
[2020-04-30 06:49] LABS: ANION GAP 7 mmol/L (5-15); CHLORIDE 105 mmol/L (98-107)
[2020-04-30 06:55] LABS: CREATININE 1.46 mg/dL (0.7-1.3)
[2020-04-30] MEDS: FLUTICASONE/VILANTEROL 200-25MCG/INH INH SCH (07:36)
[2020-04-30] MEDS: ALBUTEROL SULFATE 200 PUFFS/8.5 GR INH INH SCH ×3 (07:36→15:56)
[2020-04-30 08:25] VITALS: BP 101/68
[2020-04-30] MEDS: SODIUM CHLORIDE FLUSH 10ML SYR IVF SCH (08:25)
[2020-04-30] MEDS: AMIODARONE 200 MG TABLET PO SCH (08:26)
[2020-04-30] MEDS: MEXILETINE 150 MG CAPSULE PO SCH ×2 (08:26→16:48)
[2020-04-30] MEDS: LACTULOSE 20 GM/30 ML UDC PO SCH (08:26)
[2020-04-30] MEDS: TAMSULOSIN 0.4 MG CAP.ER.24H PO SCH (08:26)
[2020-04-30] MEDS: MULTIVITAMINS/MINERALS TABLET PO SCH (08:26)
[2020-04-30] MEDS: FERROUS SULFATE 325 MG TABLET PO SCH (08:26)
[2020-04-30] MEDS: MAGNESIUM OXIDE 400 MG TABLET PO SCH (08:26)
[2020-04-30] MEDS: POLYETHYLENE GLYCOL 17 GM PACKET PO SCH (08:26)
[2020-04-30] MEDS: FUROSEMIDE 20 MG/2 ML IV SCH ×2 (09:13→16:48)
[2020-04-30 13:25] VITALS: BP 96/56
[2020-04-30] MEDS ORDERED: FURO40TA6 PO (14:43)
[2020-04-30] MEDS ORDERED: ALBU8.5H8 INH (14:43)
== END 2020-04-30 18:06 | disposition home or self-care (01) | DRG 245 ==
LOC: CACL 07:53 → CCU 17:06 → 5SO 04-24 16:44
PROVIDERS: ADMIT Hospitalist; ATTEND Internal Medicine
PROC: 02583ZZ Destruction of Conduction Mechanism, Percutaneous Approach (ICD-10-PCS; 2020-04-23)
PROC: 0JPT0PZ Removal of Cardiac Rhythm Related Device from Trunk Subcutaneous Tissue and Fascia, Open Approach (ICD-10-PCS; 2020-04-23)
PROC: 02K83ZZ Map Conduction Mechanism, Percutaneous Approach (ICD-10-PCS; 2020-04-23)
PROC: 0JH609Z Insertion of Cardiac Resynchronization Defibrillator Pulse Generator into Chest Subcutaneous Tissue and Fascia, Open Approach (ICD-10-PCS; principal; 2020-04-23 10:00)
PROC: 0W993ZZ Drainage of Right Pleural Cavity, Percutaneous Approach (ICD-10-PCS; 2020-04-28)
DX: I48.92 Unspecified atrial flutter (principal); J96.21 Acute and chronic respiratory failure with hypoxia; E43 Unspecified severe protein-calorie malnutrition; I50.43 Acute on chronic combined systolic (congestive) and diastolic (congestive) heart failure; D68.69 Other thrombophilia; N17.9 Acute kidney failure, unspecified; N18.4 Chronic kidney disease, stage 4 (severe); I11.0 Hypertensive heart disease with heart failure; I47.2 Ventricular tachycardia; D63.1 Anemia in chronic kidney disease; E78.5 Hyperlipidemia, unspecified; I25.10 Atherosclerotic heart disease of native coronary artery without angina pectoris; I25.5 Ischemic cardiomyopathy; I34.0 Nonrheumatic mitral (valve) insufficiency; I42.8 Other cardiomyopathies; I48.91 Unspecified atrial fibrillation; I50.82 Biventricular heart failure; J44.9 Chronic obstructive pulmonary disease, unspecified; J84.10 Pulmonary fibrosis, unspecified; K21.9 Gastro-esophageal reflux disease without esophagitis; K80.20 Calculus of gallbladder without cholecystitis without obstruction; N40.0 Benign prostatic hyperplasia without lower urinary tract symptoms; Z79.01 Long term (current) use of anticoagulants; Z82.49 Family history of ischemic heart disease and other diseases of the circulatory system; Z87.891 Personal history of nicotine dependence; Z95.810 Presence of automatic (implantable) cardiac defibrillator; Z99.81 Dependence on supplemental oxygen; Z68.29 Body mass index [BMI] 29.0-29.9, adult
CPT/HCPCS: 32555; 33263; 36415; 36600; 71045; 74176; 76705; 80048; 80053; 82150; 82728; 82803; 82945; 83540; 83550; 83615; 83735; 83880; 83986; 84100; 84157; 84439; 84443; 85014; 85018; 85025; 85045; 85610; 87070; 87075; 87081; 87205; 87635; 89051; 93005; 93306; 93312; 93321; 93325; 93613; 93621; 93653; 94640; 94664; 99156; C1721; C1732; C1894; G0378; J0171; J0690; J1100; J1940; J2250; J2405; J2550; J2704; J2710; J3010; C1730; J0330; J7040

== ENCOUNTER → 2020-05-06 | Outpatient (CLI) | payer MEDICARE, BC ==
[~2020-05-06] MED LIST changes: +ALBU90AE2 INH; +CEFD300C37 PO; +FAMO20TA7 PO; +FERR324T5 PO; +FURO20TA3 PO; +LUTE20CA2 PO; +MAGN400T22 PO; +MEXI200C PO; +MULT-751 PO; +POTA20TA6 PO
== END | disposition home or self-care (01) ==
LOC: STAR 12:32
PROVIDERS: ATTEND Anesthesiology
DX: Z01.812 Encounter for preprocedural laboratory examination (principal); Z20.828 Contact with and (suspected) exposure to other viral communicable diseases
CPT/HCPCS: 36415; 87635

== ENCOUNTER 2020-05-19 01:05 | Inpatient (IN) | payer MEDICARE, BC ==
[~2020-05-19] VITALS: Ht 175.3 cm; Wt 74.0 kg
[~2020-05-19 01:05] MED LIST changes: +RIVA15TA PO
[2020-05-19 01:50] LABS: BASOPHILS % (AUTO) 0 % (0-1); EOSINOPHILS % (AUTO) 0 % (1-7); LYMPHOCYTES % (AUTO) 3 % (22-44); MEAN CORPUSCULAR HEMOGLOBIN 27.5 pg (27.5-34.5); MEAN CORPUSCULAR HGB CONC 32.2 g/dL (33.2-36.2); MEAN PLATELET VOLUME 7.9 fL (7.4-10.4); MONOCYTES % (AUTO) 8 % (2-9); NEUTROPHILS % (AUTO) 89 % (42-75); PLATELET COUNT 194 x10^3/uL (130-400); RED BLOOD COUNT 3.12 x10^6/uL (4.38-5.82); RED CELL DISTRIBUTION WIDTH 19.3 % (9.4-14.8)
[2020-05-19 01:58] LABS: ALBUMIN 2.2 g/dL (3.4-5.0); ANION GAP 6 mmol/L (5-15); CHLORIDE 102 mmol/L (98-107); CREATININE 1.31 mg/dL (0.7-1.3)
[2020-05-19 02:02] LABS: TROPONIN I 0.105 ng/mL (0.000-0.045)
--- NOTE | 2020-05-19 02:11 | NUR ---
Automatic BP not reading correctly d/t A. fib. Manual BP 102/48.
[2020-05-19 02:16] LABS: MD SCAN
--- NOTE | 2020-05-19 03:17 | NUR ---
Report given to LORIN Patton. Admitting MD notified of trop and hemoglobin.
[2020-05-19] MEDS ORDERED: POTASSIUM CHLORIDE 20 MEQ TAB.ER.PRT PO ONE ×2 (03:30→09:30)
[2020-05-19] MEDS ORDERED: FAMOTIDINE 20 MG TABLET PO ONE (03:30)
[2020-05-19] MEDS ORDERED: ALBUTEROL SULFATE INH SCH (03:30)
[2020-05-19 03:55] VITALS: BP 91/52
[2020-05-19] MEDS: ALBUTEROL HFA 90 MCG/SPRAY INH SCH ×4 (06:00→20:58)
[2020-05-19 07:13] VITALS: BP 93/54
[2020-05-19] MEDS: ASPIRIN 81 MG TABLET EC PO SCH (08:48)
[2020-05-19] MEDS: FUROSEMIDE 40 MG TABLET PO SCH ×2 (08:49→20:36)
[2020-05-19] MEDS: FERROUS SULFATE 325 MG TABLET PO SCH (08:49)
[2020-05-19] MEDS: TAMSULOSIN 0.4 MG CAP.ER.24H PO SCH (08:49)
[2020-05-19] MEDS: POTASSIUM CHLORIDE 20 MEQ TAB.ER.PRT PO SCH (08:49)
[2020-05-19] MEDS: FLUTICASONE/VILANTEROL 200-25MCG/INH INH SCH (09:00)
[2020-05-19] MEDS ORDERED: AMIODARONE 200 MG TABLET PO SCH (09:00)
[2020-05-19] MEDS ORDERED: MEXILETINE HCL 200 MG CAP PO SCH (09:00)
[2020-05-19] MEDS ORDERED: AMIODARONE 150 MG in DEXTROSE 5% 100 ML IV ONE (09:30)
[2020-05-19] MEDS ORDERED: FILTER 0.22 MICRON IV ONE (10:00)
[2020-05-19] MEDS: MEXILETINE 150 MG CAPSULE PO SCH ×4 (10:28→20:23)
[2020-05-19 12:29] VITALS: BP 94/59
[2020-05-19] MEDS: AMIODARONE 450 MG in DEXTROSE 5% 241 ML IV PRN ×2 (14:10→22:56)
[2020-05-19] MEDS: RIVAROXABAN 15 MG TABLET PO SCH (16:55)
[2020-05-19 20:15] VITALS: BP 96/58
[2020-05-19] MEDS: ATORVASTATIN 40 MG TABLET PO SCH (20:23)
[2020-05-19] MEDS: GUAIFENESIN ER 600 MG TABLET PO SCH (20:24)
[2020-05-20 01:24] VITALS: BP 105/60
[2020-05-20] MEDS: MEXILETINE 150 MG CAPSULE PO SCH ×4 (05:21→22:31)
[2020-05-20 06:32] VITALS: BP 94/60
[2020-05-20] MEDS: FLUTICASONE/VILANTEROL 200-25MCG/INH INH SCH (06:46)
[2020-05-20] MEDS: ALBUTEROL HFA 90 MCG/SPRAY INH SCH ×4 (06:46→20:20)
[2020-05-20] MEDS: GUAIFENESIN ER 600 MG TABLET PO SCH ×2 (09:32→22:31)
[2020-05-20] MEDS: TAMSULOSIN 0.4 MG CAP.ER.24H PO SCH (09:32)
[2020-05-20] MEDS: ASPIRIN 81 MG TABLET EC PO SCH (09:32)
[2020-05-20] MEDS: FERROUS SULFATE 325 MG TABLET PO SCH (09:32)
[2020-05-20] MEDS: POTASSIUM CHLORIDE 20 MEQ TAB.ER.PRT PO SCH (09:32)
[2020-05-20 13:13] VITALS: BP 106/61
[2020-05-20 13:52] LABS: ANION GAP 6 mmol/L (5-15); CALCIUM 8.2 mg/dL (8.5-10.1); CHLORIDE 101 mmol/L (98-107)
[2020-05-20] MEDS ORDERED: AMIODARONE 150 MG in DEXTROSE 5% 100 ML IV ONE ×2 (15:30→17:30)
[2020-05-20] MEDS: FILTER 0.22 MICRON FOR AMIODARONE IV PRN (15:39)
[2020-05-20] MEDS: RIVAROXABAN 15 MG TABLET PO SCH (16:33)
[2020-05-20] MEDS: AMIODARONE 450 MG in DEXTROSE 5% 241 ML IV PRN (16:59)
[2020-05-20 20:25] VITALS: BP 103/59
[2020-05-20] MEDS: ATORVASTATIN 40 MG TABLET PO SCH (22:31)
[2020-05-21 01:18] VITALS: BP 100/61
[2020-05-21] MEDS: MEXILETINE 150 MG CAPSULE PO SCH (04:55)
[2020-05-21 05:14] LABS: ANION GAP 7 mmol/L (5-15); CALCIUM 8.1 mg/dL (8.5-10.1); CHLORIDE 101 mmol/L (98-107); CREATININE 1.32 mg/dL (0.7-1.3)
[2020-05-21] MEDS: FLUTICASONE/VILANTEROL 200-25MCG/INH INH SCH (07:00)
[2020-05-21] MEDS: ALBUTEROL HFA 90 MCG/SPRAY INH SCH ×4 (07:00→20:23)
[2020-05-21 07:24] VITALS: BP 96/57
[2020-05-21] MEDS ORDERED: POTASSIUM CHLORIDE 20 MEQ TAB.ER.PRT PO SCH (09:30)
[2020-05-21] MEDS: AMIODARONE 450 MG in DEXTROSE 5% 241 ML IV PRN (10:09)
[2020-05-21 13:04] VITALS: BP 92/46
[2020-05-21] MEDS: FUROSEMIDE 20 MG/2 ML IV SCH (14:54)
[2020-05-21] MEDS: GUAIFENESIN 100 MG/5 ML, 5ML UDC NG SCH ×2 (17:00→21:33)
[2020-05-21 18:38] VITALS: BP 92/54
[2020-05-21] MEDS ORDERED: POTASSIUM CHLORIDE 20 MEQ TAB.ER.PRT NG SCH (21:00)
[2020-05-21] MEDS: RIVAROXABAN 15 MG TABLET NG SCH (21:33)
[2020-05-21] MEDS: POTASSIUM CHLORIDE 20 MEQ PACKET NG SCH (21:33)
[2020-05-21] MEDS: ATORVASTATIN 40 MG TABLET NG SCH (21:34)
[2020-05-21] MEDS: MEXILETINE 150 MG CAPSULE NG SCH (21:34)
[2020-05-22] MEDS: FILTER 0.22 MICRON FOR AMIODARONE IV PRN (00:18)
[2020-05-22] MEDS: AMIODARONE 450 MG in DEXTROSE 5% 241 ML IV PRN ×2 (00:18→15:53)
[2020-05-22 01:06] VITALS: BP 94/55
[2020-05-22] MEDS: MEXILETINE 150 MG CAPSULE NG SCH ×4 (05:08→21:07)
[2020-05-22] MEDS: GUAIFENESIN 100 MG/5 ML, 5ML UDC NG SCH ×4 (05:08→23:00)
[2020-05-22] MEDS: ALBUTEROL HFA 90 MCG/SPRAY INH SCH ×4 (06:00→19:00)
[2020-05-22 07:46] VITALS: BP 100/60
[2020-05-22] MEDS: FLUTICASONE/VILANTEROL 200-25MCG/INH INH SCH (09:00)
[2020-05-22] MEDS: FUROSEMIDE 20 MG/2 ML IV SCH (09:13)
[2020-05-22] MEDS: IRON SUCROSE COMPLEX 100MG/5ML IV SCH (09:13)
[2020-05-22] MEDS: ASPIRIN 81 MG TABLET CHEW NG SCH (09:13)
[2020-05-22] MEDS: POTASSIUM CHLORIDE 20 MEQ PACKET NG SCH ×2 (09:13→16:33)
[2020-05-22] MEDS ORDERED: GUAIFENESIN 100 MG/5 ML, 10ML UDC ONE (11:45)
[2020-05-22 12:57] VITALS: BP 94/49
[2020-05-22 16:30] VITALS: BP 97/59
[2020-05-22] MEDS: RIVAROXABAN 15 MG TABLET NG SCH (16:44)
[2020-05-22 20:56] VITALS: BP 99/58
[2020-05-22] MEDS: ATORVASTATIN 40 MG TABLET NG SCH (21:07)
[2020-05-23 01:29] VITALS: BP 101/77
[2020-05-23] MEDS: AMPICILLIN/SULBACTAM 3 GM in SODIUM CHLORIDE 0.9% 100 ML IV SCH ×2 (04:15→11:23)
[2020-05-23] MEDS: GUAIFENESIN 100 MG/5 ML, 5ML UDC NG SCH ×2 (05:55→11:24)
[2020-05-23] MEDS: MEXILETINE 150 MG CAPSULE NG SCH ×2 (05:55→11:10)
[2020-05-23] MEDS: AMIODARONE 450 MG in DEXTROSE 5% 241 ML IV PRN (05:59)
[2020-05-23] MEDS: FILTER 0.22 MICRON FOR AMIODARONE IV PRN (06:01)
[2020-05-23 06:42] VITALS: BP 100/60
[2020-05-23] MEDS: ALBUTEROL HFA 90 MCG/SPRAY INH SCH ×4 (06:45→19:01)
[2020-05-23] MEDS: FLUTICASONE/VILANTEROL 200-25MCG/INH INH SCH (06:45)
[2020-05-23] MEDS: IRON SUCROSE COMPLEX 100MG/5ML IV SCH (11:09)
[2020-05-23] MEDS: POTASSIUM CHLORIDE 20 MEQ PACKET NG SCH (11:09)
[2020-05-23] MEDS: FUROSEMIDE 20 MG/2 ML IV SCH (11:09)
[2020-05-23] MEDS: ASPIRIN 81 MG TABLET CHEW NG SCH (11:10)
[2020-05-23 12:43] VITALS: BP 103/63
[2020-05-23] MEDS ORDERED: PROCHLORPERAZINE 5 MG/ML, 2ML IVPush PRN (15:00)
[2020-05-23] MEDS ORDERED: ATROPINE OPHTH SOLN 1%, 5ML BC PRN (15:00)
[2020-05-23] MEDS ORDERED: ACETAMINOPHEN 325 MG TABLET PO PRN (15:00)
[2020-05-23] MEDS ORDERED: LORazepam 2 MG/ML, 1ML IVPush PRN (15:00)
[2020-05-23] MEDS ORDERED: MORPHINE SULFATE 4 MG/ML, 1ML IVPush PRN (15:00)
[2020-05-23] MEDS ORDERED: ACETAMINOPHEN 650 MG SUPP PR PRN (15:00)
[2020-05-23] MEDS: SODIUM CHLORIDE FLUSH 3ML SYRINGE IVF SCH (21:00)
[2020-05-24] MEDS: ALBUTEROL HFA 90 MCG/SPRAY INH SCH ×4 (07:00→19:16)
[2020-05-24] MEDS: FLUTICASONE/VILANTEROL 200-25MCG/INH INH SCH (07:11)
[2020-05-24] MEDS: SODIUM CHLORIDE FLUSH 3ML SYRINGE IVF SCH (09:00)
[2020-05-24] MEDS ORDERED: PROCHLORPERAZINE 10MG TABLET PO PRN (14:30)
[2020-05-24] MEDS ORDERED: morphine SULFATE ORAL.CONC 20 MG/ML BC PRN (15:00)
[2020-05-24] MEDS: morphine SULFATE ORAL.CONC 20 MG/ML BC PRN (15:03)
[2020-05-25] MEDS: ALBUTEROL HFA 90 MCG/SPRAY INH SCH ×4 (07:20→19:30)
[2020-05-25] MEDS: FLUTICASONE/VILANTEROL 200-25MCG/INH INH SCH (07:20)
[2020-05-25] MEDS: morphine SULFATE ORAL.CONC 20 MG/ML BC PRN (14:00)
[2020-05-25 16:05] VITALS: BP 84/62
[2020-05-25 19:47] VITALS: BP 93/60
[2020-05-25] MEDS ORDERED: LORazepam 0.5MG TABLET ONE (22:31)
[2020-05-25] MEDS: LORazepam INTENSOL 2 MG/ML BC PRN (23:25)
[2020-05-26 01:26] VITALS: BP 88/50
[2020-05-26 07:24] VITALS: BP 93/53
[2020-05-26] MEDS: ALBUTEROL HFA 90 MCG/SPRAY INH SCH ×4 (07:39→19:02)
[2020-05-26] MEDS: FLUTICASONE/VILANTEROL 200-25MCG/INH INH SCH (07:42)
[2020-05-26 12:54] VITALS: BP 94/58
[2020-05-26 20:13] VITALS: BP 99/61
[2020-05-26] MEDS: LORazepam INTENSOL 2 MG/ML BC PRN (22:20)
[2020-05-27 01:45] VITALS: BP 97/59
[2020-05-27] MEDS: ALBUTEROL HFA 90 MCG/SPRAY INH SCH ×4 (06:51→20:04)
[2020-05-27] MEDS: FLUTICASONE/VILANTEROL 200-25MCG/INH INH SCH (06:52)
[2020-05-27 09:16] VITALS: BP 101/58
[2020-05-27] MEDS: TAMSULOSIN 0.4 MG CAP.ER.24H PO SCH (09:45)
[2020-05-27 14:02] VITALS: BP 96/56
[2020-05-27 19:10] VITALS: BP 92/55
[2020-05-27] MEDS: LORazepam INTENSOL 2 MG/ML BC PRN (23:42)
[2020-05-28 00:02] VITALS: BP 100/60
[2020-05-28 06:33] VITALS: BP 100/61
[2020-05-28] MEDS: ALBUTEROL HFA 90 MCG/SPRAY INH SCH ×4 (07:00→18:37)
[2020-05-28] MEDS: TAMSULOSIN 0.4 MG CAP.ER.24H PO SCH (07:56)
[2020-05-28] MEDS: FLUTICASONE/VILANTEROL 200-25MCG/INH INH SCH (09:00)
[2020-05-28 13:33] VITALS: BP 93/58
[2020-05-28 19:35] VITALS: BP 95/57
[2020-05-28] MEDS: LORazepam INTENSOL 2 MG/ML BC PRN (21:58)
[2020-05-29 00:05] VITALS: BP 101/59
[2020-05-29] MEDS: LORazepam INTENSOL 2 MG/ML BC PRN (04:22)
[2020-05-29] MEDS: FLUTICASONE/VILANTEROL 200-25MCG/INH INH SCH ×2 (06:40→06:59)
[2020-05-29] MEDS: ALBUTEROL HFA 90 MCG/SPRAY INH SCH ×5 (06:40→19:26)
[2020-05-29] MEDS: TAMSULOSIN 0.4 MG CAP.ER.24H PO SCH (10:34)
[2020-05-30] MEDS: FLUTICASONE/VILANTEROL 200-25MCG/INH INH SCH (08:10)
[2020-05-30] MEDS: ALBUTEROL HFA 90 MCG/SPRAY INH SCH ×5 (08:10→19:20)
[2020-05-30] MEDS: TAMSULOSIN 0.4 MG CAP.ER.24H PO SCH (08:44)
[2020-05-30] MEDS: LORazepam INTENSOL 2 MG/ML BC PRN (17:15)
[2020-05-31] MEDS: LORazepam INTENSOL 2 MG/ML BC PRN (02:58)
[2020-05-31] MEDS ORDERED: LORazepam 0.5MG TABLET ONE (06:50)
[2020-05-31] MEDS: ALBUTEROL HFA 90 MCG/SPRAY INH SCH (07:10)
[2020-05-31] MEDS: FLUTICASONE/VILANTEROL 200-25MCG/INH INH SCH (07:10)
[2020-05-31] MEDS: TAMSULOSIN 0.4 MG CAP.ER.24H PO SCH (08:02)
[2020-05-31] MEDS: morphine SULFATE ORAL.CONC 20 MG/ML BC PRN (08:22)
[2020-05-31] MEDS ORDERED: morphine SULFATE 100 MG in DEXTROSE 5% 90 ML IV PRN (10:00)
== END 2020-06-01 09:00 | disposition expired | DRG 308 ==
LOC: ED 01:48 → EDIP 02:40 → 5SO 03:31 → 4NW 05-25 15:47
PROVIDERS: ADMIT Family Medicine; ATTEND Hospitalist
PROC: 4B02XTZ Measurement of Cardiac Defibrillator, External Approach (ICD-10-PCS; principal; 2020-05-19)
DX: I48.0 Paroxysmal atrial fibrillation (principal); I50.23 Acute on chronic systolic (congestive) heart failure; J69.0 Pneumonitis due to inhalation of food and vomit; J96.21 Acute and chronic respiratory failure with hypoxia; E46 Unspecified protein-calorie malnutrition; D68.69 Other thrombophilia; Q21.1 Atrial septal defect; I47.2 Ventricular tachycardia; I42.9 Cardiomyopathy, unspecified; I48.92 Unspecified atrial flutter; E87.6 Hypokalemia; Z95.810 Presence of automatic (implantable) cardiac defibrillator; N18.30 Chronic kidney disease, stage 3 unspecified; Z68.24 Body mass index [BMI] 24.0-24.9, adult; D63.8 Anemia in other chronic diseases classified elsewhere; E78.5 Hyperlipidemia, unspecified; I25.10 Atherosclerotic heart disease of native coronary artery without angina pectoris; I34.0 Nonrheumatic mitral (valve) insufficiency; J44.9 Chronic obstructive pulmonary disease, unspecified; N40.0 Benign prostatic hyperplasia without lower urinary tract symptoms; R13.10 Dysphagia, unspecified; Z51.5 Encounter for palliative care; Z79.01 Long term (current) use of anticoagulants; Z87.891 Personal history of nicotine dependence; Z99.81 Dependence on supplemental oxygen; I95.9 Hypotension, unspecified
CPT/HCPCS: 36415; 71045; 74018; 80048; 82040; 83735; 84100; 84484; 85025; 93005; 94640; 99291; G0378; J0295; J1756; J7060; J0282; J1940; J2270